=== PATIENT | male | born 1970 | race Caucasian/White ===

== ENCOUNTER 2016-09-12 18:35 | Emergency (ER) | payer SELFPAY ==
[~2016-09-12] VITALS: Ht 177.8 cm; Wt 87.2 kg
[2016-09-12 18:52] VITALS: Ht 177.8 cm; Wt 87.2 kg
[2016-09-12] MEDS ORDERED: DOCU-144 PO (20:34)
[2016-09-12] MEDS ORDERED: IBUP-1542 PO (20:34)
[2016-09-12] MEDS ORDERED: HYDR25SU23 PR (20:35)
[2016-09-12 20:53] VITALS: BP 118/78; PULSE 76; RESP 16; TEMP 98.3
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
== END 2016-09-12 20:55 | disposition home or self-care (01) ==
LOC: FTE 18:35
DX: K62.89 Other specified diseases of anus and rectum (principal); Z87.891 Personal history of nicotine dependence
CPT/HCPCS: 99284